=== PATIENT | male | born 1950 | race Caucasian/White ===

== ENCOUNTER 2022-07-18 08:59 | Emergency (ER) | payer MEDICARE, SELFPAY ==
[2022-07-18 09:05] VITALS: BP 124/73; PULSE 62; RESP 16; TEMP 36.9; O2SAT 97
--- NOTE | 2022-07-18 09:32 | ED_ITS ---
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 Patient reports small area of left peripheral vision which is clear. reports mild associated headache. Admits to wearing reading glasses, denies contacts. Denies head injury/fall or trauma, nausea/ vomiting, numbness, tingling, weakness. <RUSH Sin - Last Filed: 07/18/22 15:49> MD chief complaint: vision change <RUSH Sin Last Filed: 07/18/22 15:49> Onset (ago): hour(s) <RUSH Sin - Last Filed: 07/18/22 15:49> Onset description: sudden <RUSH Sin Last Filed: 07/18/22 15:49> Related Data Allergies/adverse reactions: Allergies Allergy/AdvReac Type Severity Reaction Status Date / Time No Known Allergies Allergy Verified 07/18/22 09:04 <RUSH Sin Last Filed: 07/18/22 15:49> Review of Systems Review of Systems: Constitutional: No Fever, No Chills, No Night Sweats, No Fatigue, No Malaise ENT/Mouth: No Ear Pain, No Nasal Congestion, No sore throat, No Rhinorrhea, No Swallowing Difficulty Eyes: No Eye Pain, No Swelling, No Redness, No Foreign Body, No Discharge, + Vision Changes Cardiovascular: No Chest Pain, No SOB, No Edema, No Palpitations Respiratory: No Cough, No Sputum, No Dyspnea Gastrointestinal: No Nausea, No Vomiting, No Diarrhea, No Constipation, No Abdominal pain Genitourinary: No Dysuria, No Urinary Frequency, No Hematuria, No Urinary Incontinence/retention, No Flank Pain Musculoskeletal: No joint pain, No Myalgias, No Joint Swelling Skin: No Skin Lesions, No rash Neuro: No Weakness, No Numbness, No Paresthesias, No Loss of Consciousness, No Dizziness, + Headache <RUSH Sin - Last Filed: 07/18/22 15:49> Yes all other systems are reviewed and are negative <RUSH Sin - Last Filed: 07/18/22 15:49> Constitutional: Constitutional: Reports as per HPI <RUSH Sin - Last Filed: 07/18/22 15:49> Neurologic: Denies Abnormal speech present <RUSH Sin - Last Filed: 07/18/22 15:49> [facility] Past Medical History Attestation statement: The following information was validated with the patient. <RUSH Sin - Last Filed: 07/18/22 15:49> Social History Social History: Social History Smoked in Last 30 Days: No Use of substances other than those prescribed or required for medical reasons: No Advance Directives: Yes Advance Directives on File: No <RUSH Sin - Last Filed: 07/18/22 15:49> Physical Exam Vital Signs: Vital Signs: Last Vital Signs Temp 97.5 F 07/18/22 13:13 Pulse 49 L 07/18/22 13:13 Resp 18 07/18/22 13:13 BP 159/61 H 07/18/22 13:13 Pulse Ox 98 07/18/22 13:13 O2 Del Method 07/18/22 13:13 BMI result Body Mass Index 30.0 <RUSH Sin - Last Filed: 07/18/22 15:49> Vital Signs: Last Vital Signs Temp 97.5 F 07/18/22 13:13 Pulse 49 L 07/18/22 13:13 Resp 18 07/18/22 13:13 BP 159/61 H 07/18/22 13:13 Pulse Ox 98 07/18/22 13:13 O2 Del Method 07/18/22 13:13 BMI result Body Mass Index 30.0 <Ten Figueredo MD - Last Filed: 07/18/22 09:38> Const: General: cooperative, healthy appearing, no acute distress and alert <RUSH Sin - Last Filed: 07/18/22 15:49> Orientation/consciousness: patient oriented x3 <RUSH Sin - Last Filed: 07/18/22 15:49> Limitations: no limitations <RUSH Sin - Last Filed: 07/18/22 15:49> HEENT: Head: Yes normal to inspection and Yes atraumatic <RUSH Sin - Last Filed: 07/18/22 15:49> Ears: hearing grossly normal bilaterally <RUSH Sin - Last Filed: 07/18/22 15:49> General nose exam: Normal external nose present <RUSH Sin - Last Filed: 07/18/22 15:49> Face and sinus: Yes normal facial exam <RUSH Sin - Last Filed: 07/18/22 15:49> Eyes: Other: visual loss to entire left field excluding small portion of left lower peripheral field <RUSH Sin - Last Filed: 07/18/22 15:49> General: appearance normal, both eyes and all related structures <RUSH Sin - Last Filed: 07/18/22 15:49> Visual Woods: abnormal by confrontation <RUSH Sin - Last Filed: 07/18/22 15:49> Alignment and Position: alignment normal <RUSH Sin - Last Filed: 07/18/22 15:49> Periorbital: periorbital findings normal <RUSH Sin - Last Filed: 07/18/22 15:49> Eyelids: Yes eyelids normal <RUSH Sin - Last Filed: 07/18/22 15:49> Sclerae: sclerae normal <RUSH Sin - Last Filed: 07/18/22 15:49> EOM: EOMs intact bilaterally <RUSH Sin - Last Filed: 07/18/22 15:49> Direct Ophthalmoscopy: normal light reflex, anterior chamber normal, decreased light reflex (slightly delayed) on the left and retinal abnormality on the left ( congestion and erythema to medial aspect) <RUSH Sin - Last Filed: 07/18/22 15:49> Neck: Neck: Yes normal visual inspection and Yes no meningeal signs <Anahi Houston PA - Last Filed: 07/18/22 15:49> Resp: Effort & Inspection: normal respiratory effort and no respiratory distress <Anahi Houston PA - Last Filed: 07/18/22 15:49> Cardio: Rate: regular rate <Anahi Houston PA - Last Filed: 07/18/22 15:49> Skin: Rashes: no rashes <Anahi Houston PA - Last Filed: 07/18/22 15:49> Wounds: no wounds <Anahi Houston PA - Last Filed: 07/18/22 15:49> Neuro: General: patient oriented x3, gait normal, tone normal, moves all extremities, no meningeal signs, no focal motor deficits and CN's II-XI intact bilaterally <Anahi Houston PA - Last Filed: 07/18/22 15:49> Cranial nerves: Yes CN's II-XII intact bilaterally and Yes Bilaterally intact EOM present <Anahi Houston PA - Last Filed: 07/18/22 15:49> Cognition (Neuro): normal cognition <Anahi Houston PA - Last Filed: 07/18/22 15:49> Speech: No Abnormal speech present <Anahi Houston PA - Last Filed: 07/18/22 15:49> Gait exam (Neuro): Normal gait present <Anahi Houston PA - Last Filed: 07/18/22 15:49> Motor exam (neuro): 5/5 motor strength present throughout and Pronator motor function not present <Anahi Houston PA - Last Filed: 07/18/22 15:49> Extrem: General: Yes normal to inspection <RUSH Sin - Last Filed: 07/18/22 15:49> Course Course Course Narrative: 1145-- Dr. Contreras in the operating room today, still unable to touch base. Have called office twice and called surgical financial reserve clerk to relay message [phone]-- spoke with Ophthalmology, Dr. Contreras who reports patients visual changes are likely permanent. Would like to rule out giant cell arteritis with inflammatory markers including ESR / CRP. Dr. Contreras evaluated patient in the ED and will see him in the office tomorrow - labs unremarkable, ESR/ CRP WNL Results discussed with patient including worrisome signs and symptoms and strict return precautions, and when to return to the emergency department. They verbalized understanding and feel safe for discharge at this time. <RUSH Sin - Last Filed: 07/18/22 15:49> Reevaluation(s) Reevaluation #1: left eye with reactive pupil and normal EOMI, no blood in anterior chamber, medial aspect of retina with erythema and congestion <Ten Figueredo MD - Last Filed: 07/18/22 09:38> Time: 09:38 <Ten Figueredo MD - Last Filed: 07/18/22 09:38> Medications Administered Discontinued Medications Generic Name Dose Route Start Last Admin Trade Name Freq PRN Reason Stop Dose Admin Tetracaine HCl 3 drop 07/18/22 11:18 07/18/22 11:28 Tetracaine Hcl/Pf 0.5% Oph Bushra 4 Ml Drops EYE-LEFT 07/18/22 11:19 3 drop ONCE ONE Administration <RUSH Sin - Last Filed: 07/18/22 15:49> Medications Administered Discontinued Medications Generic Name Dose Route Start Last Admin Trade Name Freq PRN Reason Stop Dose Admin Tetracaine HCl 3 drop 07/18/22 11:18 07/18/22 11:28 Tetracaine Hcl/Pf 0.5% Oph Bushra 4 Ml Drops EYE-LEFT 07/18/22 11:19 3 drop ONCE ONE Administration <Ten Figueredo MD - Last Filed: 07/18/22 09:38> Medical Decision Making Medical Decision Making MDM Narrative: 71-year-old male with past medical history of ACS, HTN, HLD on ASA, presenting to the ED complaining of sudden onset left eye vision loss/blurry vision since 18:00 last night. on exam vital signs stable, NAD, nontoxic appearing, physical exam as above. No focal neuro deficits, ambulating with steady gait. case discussed with Dr. Elder also evaluated patient, appreciable medial retinal erythema and congestion. Visual field loss to to prior left eye excluding small portion of left peripheral field. Concern for Retinal/arterial occlusion vs venous congestion/ occlusion. Lower suspicion for CVA/TIA or retinal detachment, no evidence of hyphema or vitreous hemorrhage plan: Visual acuity, consult Ophthalmology Please refer to course for remaining clinical decision making, interpretation of labs/imaging results, and discussions with consultants and/or family members. <RUSH Sin - Last Filed: 07/18/22 15:49> Differential Diagnosis Differential Diagnoses: The differential diagnosis associated with the presentation includes <RUSH Sin - Last Filed: 07/18/22 15:49> as above <RUSH Sin - Last Filed: 07/18/22 15:49> Admission/Observation Consideration of admission/observation: Escalation of care including admission/observation considered <RUSH Sin - Last Filed: 07/18/22 15:49> Consult Healthcare Provider Management of the patient was discussed with: Paraffin Plant Sweater Operator <RUSH Sin - Last Filed: 07/18/22 15:49> ED attending <RUSH Sin - Last Filed: 07/18/22 15:49> Lab Data MDM Lab Attestation statement: I reviewed the patient's lab results. <RUSH Sin - Last Filed: 07/18/22 15:49> Result Diagrams: 07/18/22 14:46 07/18/22 14:46 <RUSH Sin - Last Filed: 07/18/22 15:49> Labs: Lab Results 07/18/22 07/18/22 07/18/22 Range/Units 14:46 14:46 14:47 WBC 5.6 (4.8-10.8) X10*3/uL RBC 5.05 (4.60-5.80) X10*6/uL Hgb 15.3 (14.0-18.0) g/dl Hct 46.5 (42.0-52.0) % MCV 92.1 (80.0-98.0) fL MCH 30.3 (27.0-33.0) pg MCHC 32.9 (31.0-36.0) g/dl RDW 13.0 (11.0-16.0) % Plt Count 188 (160-400) X10*3/uL MPV 12.3 (9.4-12.4) fL Immature Gran % (Auto) 0.4 (0.0-0.4) % Neut % (Auto) 66.0 (45-73) % Lymph % (Auto) 19.0 L (20-40) % Frederick % (Auto) 10.5 (2-11) % Eos % (Auto) 3.4 (0-4) % Baso % (Auto) 0.7 (0-2) % Lymph # (Auto) 1.1 L (1.2-4.9) X10*3/uL Frederick # (Auto) 0.6 (0.1-1.2) X10*3/uL Eos # (Auto) 0.2 (0.0-0.4) X10*3/uL Baso # (Auto) 0.0 (0.0-0.2) X10*3/uL Abs Immat Gran (auto) 0.02 (0.00-0.03) X10*3/uL Absolute Neuts (auto) 3.7 (2.0-8.3) x10*3/uL Absolute Nucleated RBC 0.000 (0.0-0.012) X10*3/uL Nucleated RBC % (auto) 0.0 (0.0-0.2) /100WBC ESR 9 (0-15) MM/HR Sodium 142 (135-145) mmol/L Potassium 4.6 (3.3-5.1) mmol/L Chloride 106 (96-108) mmol/L Carbon Dioxide 26 (22-29) mmol/L Anion Gap 15 (12-20) BUN 13 (9-16) mg/dL Creatinine 0.98 (0.5-1.4) mg/dL Estim Creat Clear Calc 70.4 Estimated GFR > 60 Random Glucose 87 (60-115) mg/dL Calcium 9.7 (8.4-10.2) mg/dL Total Bilirubin 0.7 (0.0-1.0) mg/dL Direct Bilirubin 0.2 (0.0-0.5) mg/dL AST 24 (5-37) U/L ALT 26 (0-40) U/L Alkaline Phosphatase 113 (39-117) U/L C-Reactive Protein 0.24 (< or = 0.50) mg/dL Total Protein 7.1 (6.5-8.0) g/dL Albumin 4.4 (3.5-5.0) g/dL <RUSH Sin - Last Filed: 07/18/22 15:49> Lab Results 07/18/22 07/18/22 07/18/22 Range/Units 14:46 14:46 14:47 WBC 5.6 (4.8-10.8) X10*3/uL RBC 5.05 (4.60-5.80) X10*6/uL Hgb 15.3 (14.0-18.0) g/dl Hct 46.5 (42.0-52.0) % MCV 92.1 (80.0-98.0) fL MCH 30.3 (27.0-33.0) pg MCHC 32.9 (31.0-36.0) g/dl RDW 13.0 (11.0-16.0) % Plt Count 188 (160-400) X10*3/uL MPV 12.3 (9.4-12.4) fL Immature Gran % (Auto) 0.4 (0.0-0.4) % Neut % (Auto) 66.0 (45-73) % Lymph % (Auto) 19.0 L (20-40) % Frederick % (Auto) 10.5 (2-11) % Eos % (Auto) 3.4 (0-4) % Baso % (Auto) 0.7 (0-2) % Lymph # (Auto) 1.1 L (1.2-4.9) X10*3/uL Frederick # (Auto) 0.6 (0.1-1.2) X10*3/uL Eos # (Auto) 0.2 (0.0-0.4) X10*3/uL Baso # (Auto) 0.0 (0.0-0.2) X10*3/uL Abs Immat Gran (auto) 0.02 (0.00-0.03) X10*3/uL Absolute Neuts (auto) 3.7 (2.0-8.3) x10*3/uL Absolute Nucleated RBC 0.000 (0.0-0.012) X10*3/uL Nucleated RBC % (auto) 0.0 (0.0-0.2) /100WBC ESR 9 (0-15) MM/HR Sodium 142 (135-145) mmol/L Potassium 4.6 (3.3-5.1) mmol/L Chloride 106 (96-108) mmol/L Carbon Dioxide 26 (22-29) mmol/L Anion Gap 15 (12-20) BUN 13 (9-16) mg/dL Creatinine 0.98 (0.5-1.4) mg/dL Estim Creat Clear Calc 70.4 Estimated GFR > 60 Random Glucose 87 (60-115) mg/dL Calcium 9.7 (8.4-10.2) mg/dL Total Bilirubin 0.7 (0.0-1.0) mg/dL Direct Bilirubin 0.2 (0.0-0.5) mg/dL AST 24 (5-37) U/L ALT 26 (0-40) U/L Alkaline Phosphatase 113 (39-117) U/L C-Reactive Protein 0.24 (< or = 0.50) mg/dL Total Protein 7.1 (6.5-8.0) g/dL Albumin 4.4 (3.5-5.0) g/dL <Ten Figueredo MD - Last Filed: 07/18/22 09:38> Prescription Management I considered prescription management with: Pain Medication <RUSH Sin - Last Filed: 07/18/22 15:49> Chronic Conditions Patient?s care impacted by: Hypertension <RUSH Sin - Last Filed: 07/18/22 15:49> Critical Care Time Critical Care Time Critical Care Time: Yes <RUSH Sin - Last Filed: 07/18/22 15:49> Total Critical Care Time: 40 <RUSH Sin - Last Filed: 07/18/22 15:49> Attestation: I have personally provided critical care time exclusive of time spent on separately billable procedures. Time includes review of lab data, radiology results, discussion with consultants, and monitoring for potential decompensation. Intervention performed as documented. 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
[2022-07-18 09:36] VITALS: BP 149/78; PULSE 57; RESP 16; O2SAT 98
--- NOTE | 2022-07-18 09:47 | PC.NURSE ---
Pt reports blurry vision from left eye around 1800 yesterday. Worsening. Intact neuros, steady gait, clear speech. PERRLA b/l but sluggish on left side. Visual acuity completed. waiting dispo after provider speaks to Dr David. Pt denies pain. Skin pwd
--- NOTE | 2022-07-18 10:41 | MHC.EDTECH ---
@[phone] called [facility] line at the request of RUSH Christian. Left a message on the machine. Gave patient demographics and a call back number.
--- NOTE | 2022-07-18 10:43 | MHC.EDTECH ---
@[phone] called [facility] line for the second time per request of RUSH Christian. Left a message. Gave patient demographics and a call back number.
[2022-07-18] MEDS: Tetracaine HCl/PF 0.5% Oph Sol 4 ML DROPS 3 DROP EYE-LEFT (11:28)
--- NOTE | 2022-07-18 11:30 | PC.NURSE ---
Anahi BEVERLY at bedside for eye drops and to asses pressure in left eye
[2022-07-18 11:55] VITALS: BP 137/66; PULSE 47; RESP 16; O2SAT 97
[2022-07-18 13:13] VITALS: BP 159/61; PULSE 49; RESP 18; TEMP 36.4; O2SAT 98
[2022-07-18 14:53] LABS: MANUAL DIFF FLAG NO
[2022-07-18 14:54] LABS: Basophils Percent Auto 0.7 % (0-2); Eosinophils Absolute Auto 0.2 X10*3/uL (0.0-0.4); Eosinophils Percent Auto 3.4 % (0-4); Hematocrit 46.5 % (42.0-52.0); Hemoglobin 15.3 g/dl (14.0-18.0); Imm Gran Abs Auto 0.02 X10*3/uL (0.00-0.03); Imm Gran Pct Auto 0.4 % (0.0-0.4); Lymphocytes Absolute Auto 1.1 X10*3/uL (1.2-4.9); Mean Corpuscular HGB Conc 32.9 g/dl (31.0-36.0); Mean Corpuscular Hemoglobin 30.3 pg (27.0-33.0); Mean Corpuscular Volume 92.1 fL (80.0-98.0); Mean Platelet Volume 12.3 fL (9.4-12.4); Monocytes Absolute Auto 0.6 X10*3/uL (0.1-1.2); Monocytes Percent Auto 10.5 % (2-11); Neutrophils Absolute Auto 3.7 x10*3/uL (2.0-8.3); Platelet Count 188 X10*3/uL (160-400); Red Blood Count 5.05 X10*6/uL (4.60-5.80); White Blood Count 5.6 X10*3/uL (4.8-10.8)
[2022-07-18 15:09] LABS: Alanine Aminotransferase 26 U/L (0-40); Albumin Level 4.4 g/dL (3.5-5.0); Alkaline Phosphatase 113 U/L (39-117); Anion Gap 15 (12-20); Aspartate Amino Transferase 24 U/L (5-37); Bilirubin Direct 0.2 mg/dL (0.0-0.5); Bilirubin Total 0.7 mg/dL (0.0-1.0); Blood Urea Nitrogen 13 mg/dL (9-16); C Reactive Protein 0.24 mg/dL (< or = 0.50); Calcium 9.7 mg/dL (8.4-10.2); Carbon Dioxide 26 mmol/L (22-29); Chloride 106 mmol/L (96-108); Creatinine Clr Calc Pharmacy 70.4; Estimated Glomerular Filt Rate > 60; Glucose Random 87 mg/dL (60-115); Potassium 4.6 mmol/L (3.3-5.1); Sodium 142 mmol/L (135-145); Total Protein 7.1 g/dL (6.5-8.0)
[2022-07-18 15:43] LABS: Erythrocyte Sedimentation Rate 9 MM/HR (0-15)
[2022-07-18 16:00] VITALS: BP 121/82; PULSE 63; RESP 16; TEMP 36.4; O2SAT 98
== END 2022-07-18 16:03 | disposition home or self-care (01) ==
PROVIDERS: Physician Assistant; Emergency Provider Emergency Medicine; PCP Internal Medicine
DX: H34.9 Unspecified retinal vascular occlusion (principal); H53.8 Other visual disturbances
CPT/HCPCS: 36415; 80048; 80076; 85025; 85652; 86140; 99283; 99284

== ENCOUNTER 2023-08-27 12:48 | Emergency (ER) | payer MEDICARE, SELFPAY ==
--- NOTE | ~2023-08-27 | CT_ITS ---
EXAMINATION: CT ABDOMEN AND PELVIS WITH CONTRAST CLINICAL INFORMATION: Left-sided abdominal pain COMPARISON: None available. TECHNIQUE: Multidetector volumetric images were obtained from the superior aspect of the liver through the pubic symphysis following administration 85 mL of Omnipaque 350 intravenous contrast. Sagittal and coronal reformatted images were obtained on the technologist's workstation. Oral contrast: Yes This CT examination was performed using dose optimization techniques as appropriate, variously including the following: *Automated exposure control *Adjustment of mA and/or kV according to patient size (this includes techniques or standardized protocols for targeted exams where dose is matched to indication/reason for exam; i.e. extremities or head) *Use of iterative reconstruction technique DLP: 639 mGy-cm FINDINGS: LUNG BASES: The visualized lung bases are unremarkable. LIVER, GALLBLADDER, AND BILIARY TREE: The liver is normal in size, shape, and attenuation. No focal hepatic lesion or biliary ductal dilatation is present. The gallbladder is unremarkable with no evidence of radiopaque gallstones, gallbladder wall thickening, or obvious pericholecystic inflammatory changes. PANCREAS: There are a few small calcifications in the pancreas. Pancreas is otherwise unremarkable. SPLEEN: Unremarkable. ADRENAL GLANDS: Unremarkable. KIDNEYS AND URETERS: The kidneys are normal in size, shape, and attenuation. No hydronephrosis, hydroureter, or calculi seen. 1 cm simple cyst in the upper pole of the left kidney. 5 cm minimally complex cyst in the lower pole of the left kidney with wall calcification and partially calcified thin septations no imaging follow-up recommended. No perinephric stranding. BLADDER: Unremarkable. GASTROINTESTINAL TRACT: Diverticulosis of the colon. There is mild wall thickening of the proximal sigmoid colon adjacent fat stranding suggestive of mild sigmoid diverticulitis. The small and large bowel are otherwise unremarkable. The appendix is unremarkable. ABDOMINAL WALL: No significant hernia is appreciated. LYMPH NODES: Normal. VASCULAR: Unremarkable. PELVIC VISCERA: Unremarkable. OSSEOUS STRUCTURES: Degenerative changes of the spine. CT/CT abdomen pelvis w IV con IMPRESSION: Mild sigmoid diverticulitis. Fleischner guidelines were followed.
[2023-08-27 13:06] VITALS: BP 126/81; PULSE 82; RESP 18; TEMP 36.7; O2SAT 96; BMI 28.9
--- NOTE | 2023-08-27 13:09 | ED_ITS ---
HPI - General Adult General Chief complaint: Abdominal Pain Stated complaint: Abd Pain ? Hernia Time Seen by Provider: 08/27/23 18:16 Source: patient Mode of arrival: ambulatory Limitations: no limitations History of Present Illness HPI narrative: Patient's history of inguinal hernia repair in the past about 15 years complaining of pain left lower abdomen since yesterday morning which increases on ambulation and on bowel movement no nausea no vomiting no fever no chills no dysuria never had similar pain in the past no blood in his stool patient does have history of diverticulosis but no history of diverticulitis Related Data Previous Rx's Medication Instructions Recorded amoxicillin 875 mg-potassium 1 tab PO BID #20 tabs 08/27/23 clavulanate 125 mg tablet tramadol 50 mg tablet 50 mg PO Q6H PRN pain #20 tabs 08/27/23 Allergies Allergy/AdvReac Type Severity Reaction Status Date / Time No Known Allergies Allergy Verified 07/18/22 09:04 Review of Systems 2 Review of Systems: Yes all other systems are reviewed and are negative [facility] Social History Social History Advance Directives: Yes Advance Directives Information Provided: No Advance Directives on File: No Physical Exam ED Vital Signs: Vital Signs - 24 hr 08/27/23 13:06 08/27/23 18:29 Temperature 98.1 F 98.2 F Pulse Rate 82 80 Respiratory Rate 18 19 Blood Pressure 126/81 128/76 Pulse Oximetry 96 97 Oxygen Delivery Method Room Air Room Air BMI result Body Mass Index 28.9 Appearance: Alert. Oriented X3. No acute distress. Eyes: No pallor or icterus ENT: Pharynx normal. Oral Mucosa moist Neck: Normal inspection. Neck supple. CVS: Normal heart rate and rhythm. Pulses normal. Respiratory: No respiratory distress. Equal air entry bilateral, no wheezing/rales/rhonchi Abdomen: Soft and guarding alert lower quadrant , no rebound tenderness Bowel sounds are present, no mass palpable, no CVA tenderness, no pulsatile mass Skin: Skin warm and dry. Normal skin color. Normal skin turgor. Extremities: No lower extremity edema. No calf tenderness femoral pulse 2 +bilaterally Neuro: Oriented X 3. No motor deficit. No sensory deficit.No cerebellar signs , cranial nerves II-XII intact Course Course Course Narrative: RME- 72 year old male presents for evaluation of left lower abdominal pain that he believes is related to a previous hernia repair. Plan for labs, UA, CT abdomen and pelvis Medications Administered Discontinued Medications Generic Name Dose Route Start Last Admin Trade Name Angelica PRN Reason Stop Dose Admin Sodium Chloride 1,000 mls @ 999 mls/hr 08/27/23 18:26 08/27/23 20:36 Ns IV 08/27/23 19:26 Infused .Q1H1M ONE Infusion Piperacillin Sod/Tazobactam 50 mls @ 100 mls/hr 08/27/23 20:40 08/27/23 20:49 Sod 3.375 gm/ Sodium Chloride IV 08/27/23 21:09 100 mls/hr ONCE ONE Administration Iohexol 100 ml 08/27/23 18:56 08/27/23 18:57 Iohexol 350 Mg/Ml 100 Ml Infus..Btl IV 08/27/23 18:57 85 ml ONCE ONE Administration Ketorolac Tromethamine 30 mg 08/27/23 19:08 08/27/23 19:29 Ketorolac Tromethamine 30 Mg/Ml Vial IVPUSH 08/27/23 19:09 30 mg ONCE ONE Administration Medical Decision Making Medical Decision Making [facility] Narrative: Patient with acute left lower abdominal pain with history of diverticulosis workup showed mild diverticulitis with CBC normal normal lactic acid was given 1 dose of Zosyn in the ER discharge patient home on Augmentin Lab Data [facility] Lab Attestation statement: I reviewed the patient's lab results. 08/27/23 14:12 08/27/23 14:12 Labs: Lab Results 08/27/23 Range/Units 14:12 WBC 6.9 (4.8-10.8) X10*3/uL RBC 5.16 (4.60-5.80) X10*6/uL Hgb 15.7 (14.0-18.0) g/dl Hct 47.8 (42.0-52.0) % MCV 92.6 (80.0-98.0) fL MCH 30.4 (27.0-33.0) pg MCHC 32.8 (31.0-36.0) g/dl RDW 13.2 (11.0-16.0) % Plt Count 183 (160-400) X10*3/uL MPV 11.6 (9.4-12.4) fL Immature Gran % (Auto) 0.1 (0.0-0.4) % Neut % (Auto) 71.7 (45-73) % Lymph % (Auto) 12.8 L (20-40) % Sabine % (Auto) 12.1 H (2-11) % Eos % (Auto) 2.9 (0-4) % Baso % (Auto) 0.4 (0-2) % Lymph # (Auto) 0.9 L (1.2-4.9) X10*3/uL Sabine # (Auto) 0.8 (0.1-1.2) X10*3/uL Eos # (Auto) 0.2 (0.0-0.4) X10*3/uL Baso # (Auto) 0.0 (0.0-0.2) X10*3/uL Abs Immat Gran (auto) 0.01 (0.00-0.03) X10*3/uL Absolute Neuts (auto) 5.0 (2.0-8.3) x10*3/uL Absolute Nucleated RBC 0.000 (0.0-0.012) X10*3/uL Nucleated RBC % (auto) 0.0 (0.0-0.2) /100WBC Sodium 139 (135-145) mmol/L Potassium 4.3 (3.3-5.1) mmol/L Chloride 108 (96-108) mmol/L Carbon Dioxide 25 (22-29) mmol/L Anion Gap 10 L (12-20) BUN 15 (9-16) mg/dL Creatinine 0.96 (0.5-1.4) mg/dL Estim Creat Clear Calc 69.5 Estimated GFR > 60 Random Glucose 107 (60-115) mg/dL Lactic Acid 1.0 (0.5-2.0) mmol/L Calcium 9.5 (8.4-10.2) mg/dL Total Bilirubin 0.5 (0.0-1.0) mg/dL AST 17 (5-37) U/L ALT 20 (0-40) U/L Alkaline Phosphatase 122 H (39-117) U/L Total Protein 7.1 (6.5-8.0) g/dL Albumin 4.0 (3.5-5.0) g/dL Lipase 22 (8-78) U/L Urine Color Yellow Urine Appearance Clear Urine pH 5.5 (5.0-9.0) Ur Specific [place] 1.010 (1.005-1.025) Urine Protein Negative (Neg-Trace) mg/dL Urine Glucose (UA) Negative (Negative) mg/dL Urine Ketones Negative (Negative) mg/dL Urine Blood Negative (Negative) Urine Nitrite Negative (Negative) Ur Leukocyte Esterase Negative (Negative) Urine RBC 0-2 (0-2) /HPF Urine WBC 0-5 (0-5) /HPF Ur Squamous Epith Cells 0-2 (0-2) /HPF Urine Bacteria None Seen (None Seen) Hyaline Casts 0-2 (0-2) /LPF Independent Interpretation I performed an independent interpretation of an: CT Scan Radiology Impression Discussion of test interpretation with radiology: I have reviewed the radiologist's reading. Discharge Plan Discharge Clinical Impression: Diverticulitis Patient Disposition: Home, Self-Care Instructions: Diverticulitis (ED), Diverticulitis Diet (ED) Additional Instructions: You have mild diverticulitis Take antibiotics and pain medication as prescribed Clear liquids advanced slowly Report to the ER if increased vomiting/fever/worsening of the pain for further management Prescriptions: New amoxicillin-pot clavulanate 875-125 mg tablet 1 tab PO BID Qty: 20 0RF tramadol 50 mg tablet 50 mg PO Q6H PRN (Reason: pain) Qty: 20 0RF
[2023-08-27 14:17] LABS: MANUAL DIFF FLAG NO
[2023-08-27 14:19] LABS: Appearance Urine Clear; Basophils Percent Auto 0.4 % (0-2); Color Urine Yellow; Eosinophils Absolute Auto 0.2 X10*3/uL (0.0-0.4); Eosinophils Percent Auto 2.9 % (0-4); Glucose Urine UA Negative (Negative); Hematocrit 47.8 % (42.0-52.0); Hemoglobin 15.7 g/dl (14.0-18.0); Imm Gran Abs Auto 0.01 X10*3/uL (0.00-0.03); Imm Gran Pct Auto 0.1 % (0.0-0.4); Leukocyte Esterase Urine Negative (Negative); Lymphocytes Absolute Auto 0.9 X10*3/uL (1.2-4.9); Lymphocytes Percent Auto 12.8 % (20-40); Mean Corpuscular HGB Conc 32.8 g/dl (31.0-36.0); Mean Corpuscular Hemoglobin 30.4 pg (27.0-33.0); Mean Corpuscular Volume 92.6 fL (80.0-98.0); Mean Platelet Volume 11.6 fL (9.4-12.4); Monocytes Absolute Auto 0.8 X10*3/uL (0.1-1.2); Monocytes Percent Auto 12.1 % (2-11); Neutrophils Percent Auto 71.7 % (45-73); Nitrite Urine Negative (Negative); PH 5.5 (5.0-9.0); Platelet Count 183 X10*3/uL (160-400); Red Blood Count 5.16 X10*6/uL (4.60-5.80); Red Cell Distribution Width 13.2 % (11.0-16.0); Urine Blood Negative (Negative); Urine Ketones Negative (Negative); Urine Protein Negative (Neg-Trace); White Blood Count 6.9 X10*3/uL (4.8-10.8)
[2023-08-27 14:24] LABS: Bacteria Urine None Seen (None Seen); Hyaline Casts Urine 0-2 /LPF (0-2); RBC Urine 0-2 /HPF (0-2); Squamous Epithelial Cell Urine 0-2 /HPF (0-2); WBC Urine 0-5 /HPF (0-5)
[2023-08-27 14:32] LABS: Alanine Aminotransferase 20 U/L (0-40); Alkaline Phosphatase 122 U/L (39-117); Anion Gap 10 (12-20); Aspartate Amino Transferase 17 U/L (5-37); Bilirubin Total 0.5 mg/dL (0.0-1.0); Blood Urea Nitrogen 15 mg/dL (9-16); Calcium 9.5 mg/dL (8.4-10.2); Carbon Dioxide 25 mmol/L (22-29); Chloride 108 mmol/L (96-108); Creatinine Clr Calc Pharmacy 69.5; Estimated Glomerular Filt Rate > 60; Glucose Random 107 mg/dL (60-115); Lipase 22 U/L (8-78); Potassium 4.3 mmol/L (3.3-5.1); Sodium 139 mmol/L (135-145); Total Protein 7.1 g/dL (6.5-8.0)
[2023-08-27 18:29] VITALS: BP 128/76; PULSE 80; RESP 19; TEMP 36.8; O2SAT 97
--- NOTE | 2023-08-27 18:46 | PC.NURSE ---
pt remains in radiology
[2023-08-27] MEDS: iohexoL 350 MG/ML 100 ML INFUS..BTL IV (18:57)
[2023-08-27] MEDS: Ketorolac Tromethamine 30 MG/ML VIAL IVPUSH (19:29)
[2023-08-27] MEDS: 0.9 % Sodium Chloride 1,000 ML 999 ML IV (19:30)
[2023-08-27] MEDS: Piperacillin Sodium/Tazobactam 3.375 GM in 0.9 % Sodium Chloride 50 ML IV (20:49)
== END 2023-08-27 21:18 | disposition home or self-care (01) ==
PROVIDERS: Physician Assistant; Emergency Provider Internal Medicine; PCP Internal Medicine
DX: K57.32 Diverticulitis of large intestine without perforation or abscess without bleeding (principal); R10.32 Left lower quadrant pain; Z79.899 Other long term (current) drug therapy
CPT/HCPCS: 36415; 74177; 80053; 81001; 83605; 83690; 85025; 96361; 96374; 96375; 99284; J1885; J2543; Q9967